=== PATIENT | female | born 1945 | race Caucasian/White ===

== ENCOUNTER 2022-07-01 09:44 | Outpatient (CLI) | payer MEDICARE, SELFPAY ==
--- NOTE | 2022-07-01 09:57 | ECHO_ITS ---
Patient Info Name: Sadie Rodrigues Age: 77 years : 1945 Gender: Female Ht: 63 in Wt: 177 lbs BSA: 1.92 m2 HR: 89 bpm BP: 161 / 92 mmHg Heart Rhythm: Sinus Rhythm Technical Quality: Good Exam Date: 07/01/2022 10:03 AM Exam Location: [facility] Patient Status: Outpatient Admit Date: 07/01/2022 Staff Ordering Physician: Goran Sharma MD Signalling And Communications Engineer: Sommer Goins RDCS Attending Provider: Goran Sharma MD Referring Physician: Zachary CARREON; Exam Type: CA echo doppler color flow Study Info Indications R01.1 - Cardiac murmur, unspecified Complete two-dimensional, color flow and Doppler transthoracic echocardiogram is performed. Summary 1. Complete two-dimensional, color flow and Doppler transthoracic echocardiogram is performed. 2. Left ventricular chamber dimension is normal. 3. Left ventricular systolic function is normal, estimated at 65-70%. 4. There is no increased left ventricular wall thickness. 5. The left ventricular diastolic function is grade I diastolic dysfunction. 6. Global longitudinal strain is normal at -18 %. 7. Right ventricular systolic function is normal. 8. There is mild aortic valve calcification. 9. The mitral valve annulus is mildly calcified. 10. There is mild tricuspid valve regurgitation. Left Ventricle Left ventricular chamber dimension is normal. Left ventricular systolic function is normal, estimated at 65-70%. There is no increased left ventricular wall thickness. The left ventricular diastolic function is grade I diastolic dysfunction. Global longitudinal strain is normal at -18 %. Right Ventricle Right ventricular chamber dimension is normal. Right ventricular systolic function is normal. Left Atria Left atrial chamber dimension is normal. Right Atria Right atrial chamber dimension is normal. Atrial Septum Intact interatrial septum visualized by color flow imaging. Aortic Valve The aortic valve is trileaflet. There is no aortic valve stenosis. There is no aortic valve regurgitation. There is mild aortic valve calcification. Pulmonic Valve The pulmonic valve is not well visualized. Mitral Valve The mitral valve has normal leaflets. There is no mitral valve stenosis. There is trace mitral valve regurgitation. The mitral valve annulus is mildly calcified. Tricuspid Valve There is mild tricuspid valve regurgitation. Pericardium/Pleural There is trivial pericardial effusion. Inferior Vena Cava Normal inferior vena cava with >50% collapse upon inspiration consistent with normal right atrial pressure, 3 mmHg. Aorta The aortic root size at the sinus of Valsalva is normal. Left Ventricular Outflow Tract Name Value Normal LVOT 2D LVOT Diameter 2.0 cm LVOT Doppler LVOT Peak Gradient 4 mmHg LVOT Mean Gradient 2 mmHg LVOT VTI 22 cm LVOT VTI/AV VTI Ratio 0.9 LVOT Stroke Volume 67 ml LVOT CO 5.0 l/min LVOT
== END 2022-07-01 09:45 | disposition home or self-care (01) ==
LOC: ANHCARD 09:45
PROVIDERS: PCP Family Medicine; Visit Provider Family Medicine
DX: R01.1 Cardiac murmur, unspecified (principal)
CPT/HCPCS: 93306

== ENCOUNTER 2023-06-11 08:26 | Outpatient (CLI) | payer MEDICARE, SELFPAY ==
[2023-06-11 09:31] LABS: Alanine Aminotransferase 22 U/L (14-59); Albumin Level 3.6 g/dL (3.4-5.0); Alkaline Phosphatase 113 U/L (46-116); Anion Gap 8 mmol/L (8-16); Aspartate Amino Transferase 20 U/L (15-37); Bilirubin,Total 0.7 mg/dL (0.00-1.00); Blood Urea Nitrogen 14 mg/dL (7-18); Calcium 9.2 mg/dL (8.5-10.1); Carbon Dioxide 30 mmol/L (21-32); Chloride 103 mmol/L (98-108); Cholesterol 287 mg/dL (0-200); Estimated Glomerular Filt Rate > 60; Glucose 111 mg/dL (70-99); HDL Direct 71 mg/dL (40-60); LDL Cholesterol Calculated 199 mg/dL (<130); Osmolality Calculated 293 mOsm/kg (285-295); Potassium 4.1 mmol/L (3.5-5.1); Sodium 141 mmol/L (136-145); Total Protein 6.8 g/dL (6.4-8.2); Triglycerides 86 mg/dL (0-150)
== END 2023-06-11 08:27 | disposition home or self-care (01) ==
LOC: CHSLAB 08:30
PROVIDERS: PCP Family Medicine; Visit Provider Family Medicine
DX: E78.5 Hyperlipidemia, unspecified (principal)
CPT/HCPCS: 36415; 80053; 80061

== ENCOUNTER 2024-03-21 09:50 | Emergency (ER) | payer MEDICARE, OTHER, SELFPAY ==
[2024-03-21] VITALS (29 sets, daily range): BP systolic 126–186; BP diastolic 65–101; PULSE 66–95; RESP 16–20; TEMP 36.9; O2SAT 95–100
--- NOTE | ~2024-03-21 | CT_ITS ---
EXAMINATION: CTA chest DATE: 03/21/2024 11:11 INDICATION: Chest pain radiating throughout the thoracic spine. TECHNIQUE: Computed tomographic angiography (CTA) of the chest was performed without and with 100 mL Omnipaque-350 intravenous contrast. Volume-rendered 3D-reconstructions of the aorta and large arterie s were constructed by the technologist on a separate workstation. Automated exposure control and iter ative reconstruction technique were employed. The dose-length product was 291.54 mGy-cm. COMPARISON: CT dated 03/18/2016 FINDINGS: No pulmonary embolism. Mild discoid atelectasis in the right lower lobe. There is also some subpleura l fibrosis at the medial right lower lobe along side multiple bridging osteophytes consistent with di ffuse idiopathic skeletal hyperostosis (DISH). No pneumonia, pulmonary edema, pleural effusion or pne umothorax. Heart size is normal. No pericardial effusion. Thoracic aorta is normal in caliber with no dissection. No pathologically enlarged thoracic lymphadenopathy. Gallbladder is nonvisualized and li ciarra surgically absent. Moderate thoracic spondylosis. Chronic mild anterior wedging at T11. IMPRESSION: 1. No pulmonary embolism, aortic dissection or other acute cardiopulmonary disease. Reviewed, dictated and finalized at location A. NTEGRATOR OPERATOR IMPRESSION: 1. No pulmonary embolism, aortic dissection or other acute cardiopulmonary dise ase.
--- NOTE | 2024-03-21 09:54 | ECG_ITS ---
Test Date: 2024-03-21 12:19:37 Measurements Intervals [place] Rate: 65 P: 37 IN: 190 QRS: -37 QRSD: 101 T: 25 QT: 433 QTc: 453 Interpretive Statements SINUS RHYTHM LEFT AXIS DEVIATION PATTERN CONSISTENT WITH PULMONARY DISEASE INCOMPLETE RIGHT BUNDLE BRANCH BLOCK VOLTAGE CRITERIA FOR LVH MINIMAL Q WAVES- HIGH LATERAL LEADS BASELINE ARTIFACT- I, II, III, AVR, AVL, AVF, V1-V2 BORDERLINE ECG No previous ECG available for comparison Electronically Signed On 03-21-2024 18:49:19 [employer]OX [employer] by Brad Castro D.O.
--- NOTE | 2024-03-21 10:05 | ED_ITS ---
HPI - Chest Pain General Chief Complaint: Chest Pain Stated Complaint: CHEST PAIN Time Seen by Provider: 03/21/24 09:54 Source: patient and family Mode of arrival: ambulatory Limitations: no limitations History of Present Illness HPI narrative: Patient is a 79-year-old female with left-sided chest pain for the past 3 days. This chest pain is been on and off and more so last night all night. She has left neck pain and left arm pain. She has a history of cervical spine pain and upper back pain. She had an echocardiogram of the heart 2 years ago that was normal. No history of CAD. She does have hypertension. Associated palpitations and flushing of the face. MD complaint: chest pain and chest heaviness Pertinent past history: other ( Hypertension) Onset (ago): day(s) (3) Timing of current episode: constant Prior episodes: No Onset: during rest Pain location: substernal and left chest Pain radiation: left arm, back, neck, jaw/teeth and left scapula Severity: moderate Pain scale (0-10): 5 Quality: tightness, heaviness and sharp Relieving factors: nothing Exacerbating factors: nothing Context: other ( no history of CAD) Associated symptoms: sense of impending doom and palpitations Treatment prior to arrival: none Risk Factors Coronary artery disease risk factors: hypertension Thoracic aortic dissection risk factors: none Related Data On Oral Contraceptives: No Home Medications Medication Instructions Recorded Confirmed cholecalciferol (vitamin D3) 100 100 mcg PO DAILY 06/02/20 03/21/24 mcg (4,000 unit) capsule vitamin K2 45 mcg capsule 45 mcg PO DAILY 06/17/23 03/21/24 Allergies Allergy/AdvReac Type Severity Reaction Status Date / Time atorvastatin Allergy Unknown muscle Verified 03/21/24 10:01 doxycycline Allergy Unknown Skin Verified 03/21/24 10:01 Reaction lisinopril Allergy Unknown cough Verified 03/21/24 10:01 pitavastatin [Livalo] Allergy Unknown cramps Verified 03/21/24 10:01 simvastatin Allergy Unknown cramps Verified 03/21/24 10:01 Sulfa (Sulfonamide Allergy Unknown Pt does Verified 03/21/24 10:01 Antibiotics) not remember reaction Review of Systems Review of Systems: All systems reviewed & are unremarkable except as noted in HPI and below Constitutional: Constitutional: Reports no additional constitutional compla ints Eyes: Eyes: Reports no additional eye complaints ENT: Reports system reviewed and no additional complaints, except as documented Cardiovascular: Cardiovascular: Reports no additional cardiovascular complaints Respiratory: Respiratory: Reports no additional respiratory complaints Gastrointestinal: Gastrointestinal: Reports no additional gastrointestinal complaints Genitourinary: Genitourinary: Reports no additional female genitourinary complaints Musculoskeletal: Musculoskeletal: Reports no additional musculoskeletal complaints Integumentary/Breasts: Skin/Breast: Reports system reviewed and no additional complaints, except as docu Neurologic: Reports system reviewed and no additional complaints, except as documented Psychiatric: Psychiatric: Reports no additional psychiatric complaints Endocrine: Endocrine: Reports no additional endocrine complaints Hematologic/Lymphatic: Hematologic/Lymphatic: Reports no additional hematologic/lymphatic complaints Allergic/Immunologic: Allergic/Immunologic: Reports no additional allergic/immunologic complaints [facility] Past Medical History Medical History Anxiety Cervical polyp Herpes simplex virus (HSV) infection (~2000) History of encephalitis Hypertension Mild depression Mixed hyperlipidemia Prediabetes Rosacea Tubular adenoma of colon Surgical History Surgical History History of dilation and curettage (~1983) History of hysteroscopy (~1997) Hx of cholecystectomy Family History Family History Father , age 71, cardiac arrest Heart disease Myocardial infarction Sibling Family history of cardiovascular disease, Onset Age: 59 Family history of pancreatic cancer Family history of malignant neoplasm of uterus Mother , age 57, pancreatic cancer Pancreatic cancer Social History Social History Smoking status: Never smoker Alcohol intake: never Exam Const: General: healthy appearing Nutritional Appearance: well nourished Orientation/consciousness: patient oriented x3 Other: anxious HENMT: Head: normal to inspection Ears: external ears normal Face/Nose/Sinus: Normal external nose present Eyes: Conjunctivae: conjunctivae normal Pupils: Equal, round and reactive pupils present EOM: EOMs intact bilaterally Neck: Neck: normal visual inspection Chest: Chest palpation & inspection: normal inspection of the chest Resp: Effort & Inspection: normal respiratory effort and not labored Auscultation: clear to auscultation bilaterally and no crackles Cardio: Rate: regular rate Rhythm: regular rhythm Heart sounds: no murmurs GI: Inspection: non-distended Auscultation: normal bowel sounds and bowel sounds present : General: Yes bladder normal to palpation Back/Spine/Pelvis: Back: no CVA tenderness Skin: General skin exam: normal color Rashes: no rashes Wounds: no wounds Neuro: General: patient oriented x3 Cranial nerves: Yes Nystagmus not present Speech: normal speech Extrem: General: normal to inspection Psych: Mental Status: mental status grossly normal Affect: normal affect Attitude: cooperative Course Vital Signs Vital signs: Vital Signs Temperature 36.9 C 03/21/24 09:54 Pulse Rate 95 03/21/24 09:54 Respiratory Rate 20 03/21/24 09:54 Blood Pressure 186/92 H 03/21/24 09:54 Pulse Oximetry 98 03/21/24 09:54 Oxygen Delivery Room Air 03/21/24 09:54 Temperature 36.9 C 03/21/24 09:54 Pulse Rate 71 03/21/24 12:46 Respiratory Rate 18 03/21/24 12:46 Blood Pressure 142/73 H 03/21/24 12:46 Pulse Oximetry 99 03/21/24 12:46 Oxygen Delivery Room Air 03/21/24 12:46 MDM - Chest Pain MDM Narrative Medical decision making narrative: patient is a 79-year-old female with left-sided chest pain that she appreciates in her left face and left arm as well as her upper middle back. We will do workup at this time to include a CTA of the aorta. Lab Data Attestation: I reviewed the patient's lab results. 03/21/24 10:15 03/21/24 10:15 Labs: Lab Results 03/21/24 03/21/24 Range/Units 10:15 12:28 WBC 4.1 L (4.8-10.8) K/mm3 RBC 4.81 (4.20-5.40) M/mm3 Hgb 14.1 H (11.7-13.8) g/dL Hct 41.4 (35.0-42.0) % MCV 86.1 (78.0-102.0) fL MCH 29.3 (27.0-31.0) pg MCHC 34.1 (32-36) g/dL RDW 14.7 H (11.6-14.4) % Plt Count 285 (150-420) K/mm3 MPV 10.2 (9.2-11.8) fl Immature Gran % (Auto) 0.2 H (0.0-0.0) % Neut % (Auto) 51.3 (50.0-70.0) % Lymph % (Auto) 31.0 (18.0-42.0) % Real % (Auto) 10.6 (2.0-11.0) % Eos % (Auto) 5.2 (1.0-6.0) % Baso % (Auto) 1.7 H (0.0-1.0) % Lymph # (Auto) 1.26 (1.10-4.50) K/mm3 Real # (Auto) 0.43 (0.10-0.90) K/mm3 Eos # (Auto) 0.21 (0.02-0.50) K/mm3 Baso # (Auto) 0.07 (0.00-0.10) K/mm3 Abs Immat Gran (auto) 0.01 H (0.00-0.00) K/mm3 Absolute Neuts (auto) 2.08 (1.70-7.20) K/mm3 Absolute Nucleated RBC 0.00 (0.00-0.00) K/mm3 Nucleated RBC % 0.0 (0-0.0) % PT 10.1 (9.50-12.1) Seconds INR 0.9 APTT 25.1 (23.9-30.70) Sec Sodium 140 (136-145) mmol/L Potassium 3.8 (3.5-5.1) mmol/L Chloride 102 (98-108) mmol/L Carbon Dioxide 28 (21-32) mmol/L Anion Gap 10 (4-12) mmol/L BUN 12 (7-18) mg/dL Creatinine 0.85 (0.55-1.02) mg/dL Estim Creat Clear Calc 49 ml/min Estimated GFR > 60 (59 - ) Glucose 111 H (70-99) mg/dL Calculated Osmolality 290 (285-295) mOsm/kg Calcium 9.6 (8.5-10.1) mg/dL Magnesium 1.7 L (1.8-2.4) mg/dL Total Bilirubin 0.6 (0.00-1.00) mg/dL AST 15 (15-37) U/L ALT 31 (14-59) U/L Alkaline Phosphatase 146 H (46-116) U/L Troponin I < 4.0 < 4.0 (0.00-60.4) ng/L NT-Pro-B Natriuret Pep 45 (0-450) pg/mL Total Protein 7.1 (6.4-8.2) g/dL Albumin 3.5 (3.4-5.0) g/dL Lipase 99 H (16-77) U/L TSH 1.46 (0.36-3.74) uIU/mL Urine Color Light yellow (Yellow) Urine Appearance Clear (Clear) Urine pH 6.5 (5.0-8.0) Ur Specific [place] <= 1.005 L (1.010-1.020) Urine Protein Negative (Negative) Urine Glucose (UA) Negative (Negative) Urine Ketones Negative (Negative) Ur Blood (Man) Negative (Negative) Urine Nitrate Negative (Negative) Urine Bilirubin Negative (Negative) Urine Urobilinogen 0.2 (0.2-1.0) mg/dL Leukocyte Esterase Rfl Negative (Negative) TOSHIA/UL Imaging Data Attestation: I personally reviewed and interpreted this imaging study as follows: Radiologist's impression: CTA of the chest was negative for PE and dissection and any other acute process ECG Data EKG #1: Attestation: I personally reviewed and interpreted this ECG as follows: ECG completion date: 03/21/24 ECG completion time: 10:11 EKG Interpretation: normal rate, sinus rhythm, no ectopy, non-specific ST changes, normal QRS, normal QT and left axis EKG #2: Attestation: I personally reviewed and interpreted this ECG as follows: ECG completion date: 03/21/24 ECG completion time: 13:00 EKG Interpretation: normal rate, sinus rhythm, no ectopy, non-specific ST changes, normal QRS, normal QT and left axis Discharge Plan Discharge Clinical Impression: Atypical chest pain Patient Disposition: Home, Self-Care Condition: Stable Instructions: Chest Pain (ED) Additional Instructions: please follow-up with primary doctor in the next week. You will need cervical spine workup as an outpatient planned with her primary doctor. Further cardiac workup can be done with the primary doctor. Prescriptions: No Action cholecalciferol (vitamin D3) 100 mcg (4,000 unit) capsule 100 mcg PO DAILY vitamin K2 45 mcg capsule 45 mcg PO DAILY gabapentin 300 mg capsule 300 mg PO BID Qty: 60 1RF irbesartan-hydrochlorothiazide 150-12.5 mg tablet 1 tablet PO DAILY Qty: 90 3RF Follow-up/Referrals: UNKNOWN,DOCTOR [Primary Care Provider] - Time of Disposition: 13:02
[2024-03-21 10:20] LABS: Basophils Absolute Auto 0.07 K/mm3 (0.00-0.10); Basophils Percent Auto 1.7 % (0.0-1.0); Eosinophils Absolute Auto 0.21 K/mm3 (0.02-0.50); Eosinophils Percent Auto 5.2 % (1.0-6.0); Hematocrit 41.4 % (35.0-42.0); Hemoglobin 14.1 g/dL (11.7-13.8); Immature Granulocyte Absolute 0.01 K/mm3 (0.00-0.00); Immature Granulocyte Percent A 0.2 % (0.0-0.0); Lymphocytes Absolute Auto 1.26 K/mm3 (1.10-4.50); Mean Corpuscular HGB Conc 34.1 g/dL (32-36); Mean Corpuscular Hemoglobin 29.3 pg (27.0-31.0); Mean Corpuscular Volume 86.1 fL (78.0-102.0); Mean Platelet Volume 10.2 fl (9.2-11.8); Monocytes Absolute Auto 0.43 K/mm3 (0.10-0.90); Monocytes Percent Auto 10.6 % (2.0-11.0); Neutrophils Absolute Auto 2.08 K/mm3 (1.70-7.20); Neutrophils Percent Auto 51.3 % (50.0-70.0); Platelet Count Result 285 K/mm3 (150-420); Red Blood Count 4.81 M/mm3 (4.20-5.40); Red Cell Distribution Width 14.7 % (11.6-14.4); White Blood Count 4.1 K/mm3 (4.8-10.8)
[2024-03-21 10:38] LABS: Add Urine Microscopic? NO; Appearance Urine Clear (Clear); Bilirubin Urine Negative (Negative); Blood Urine Negative (Negative); Color Urine Light Yellow (Yellow); Glucose Urine UA Negative (Negative); INR 0.9; Ketones Urine Negative (Negative); Leukocyte Esterase Ur Negative LEU/UL (Negative); Nitrate Urine Negative (Negative); Partial Thromboplastin Time 25.1 Sec (23.9-30.70); Protein Urine Negative (Negative); Prothrombin Time 10.1 Seconds (9.50-12.1); Specific Grav Ur <= 1.005 (1.010-1.020); Urobilinogen Urine 0.2 mg/dL (0.2-1.0); pH Urine 6.5 (5.0-8.0)
[2024-03-21 10:46] LABS: Alanine Aminotransferase 31 U/L (14-59); Albumin Level 3.5 g/dL (3.4-5.0); Alkaline Phosphatase 146 U/L (46-116); Anion Gap 10 mmol/L (4-12); Aspartate Amino Transferase 15 U/L (15-37); Bilirubin,Total 0.6 mg/dL (0.00-1.00); Blood Urea Nitrogen 12 mg/dL (7-18); Calcium 9.6 mg/dL (8.5-10.1); Carbon Dioxide 28 mmol/L (21-32); Chloride 102 mmol/L (98-108); Estimated CRCL calculation 49 ml/min; Estimated Glomerular Filt Rate > 60; Glucose 111 mg/dL (70-99); Lipase 99 U/L (16-77); Magnesium 1.7 mg/dL (1.8-2.4); NT Pro B Type Natriuretic Pept 45 pg/mL (0-450); Osmolality Calculated 290 mOsm/kg (285-295); Potassium 3.8 mmol/L (3.5-5.1); Sodium 140 mmol/L (136-145); Thyroid Stimulating Hormone 1.46 uIU/mL (0.36-3.74); Total Protein 7.1 g/dL (6.4-8.2)
[2024-03-21 10:47] LABS: Troponin I < 4.0 ng/L (0.00-60.4)
--- NOTE | 2024-03-21 12:15 | ECG_ITS ---
Test Date: 2024-03-21 09:54:56 Measurements Intervals [place] Rate: 86 P: 52 ND: 214 QRS: -46 QRSD: 101 T: 51 QT: 382 QTc: 458 Interpretive Statements SINUS RHYTHM WITH FIRST DEGREE AV BLOCK POSSIBLE LEFT ATRIAL ENLARGEMENT INCOMPLETE RIGHT BUNDLE BRANCH BLOCK LEFT ANTERIOR FASCICULAR BLOCK POSSIBLE LEFT VENTRICULAR HYPERTROPHY BASELINE ARTIFACT- II, III, AVR, AVL, AVF, V1-V2 ABNORMAL ECG No previous ECG available for comparison Electronically Signed On 03-22-2024 06:28:00 MATERIAL CHASER by Brad Castro D.O.
[2024-03-21 13:16] LABS: Troponin I < 4.0 ng/L (0.00-60.4)
== END 2024-03-21 13:29 | disposition home or self-care (01) ==
PROVIDERS: Emergency Provider Emergency Medicine
DX: R07.89 Other chest pain (principal); I10 Essential (primary) hypertension
CPT/HCPCS: 36415; 71275; 80053; 81003; 83690; 83735; 83880; 84443; 84484; 85025; 85610; 85730; 93005; 99284; Q9967

== ENCOUNTER 2024-04-02 12:44 | Outpatient (CLI) | payer MEDICARE, OTHER, SELFPAY ==
--- NOTE | ~2024-04-02 | MR_ITS ---
EXAMINATION: MR thoracic spine wo con DATE: 04/02/2024 13:33 INDICATION: Thoracic radiculopathy. Neck pain. TECHNIQUE: Magnetic resonance imaging (MRI) of the thoracic spine was performed without intravenous c ontrast. COMPARISON: Thoracic spine MRI 04/22/2017, chest CT 03/21/2024 FINDINGS: Alignment is normal. There is mild chronic anterior wedging of T6, T7, T11, and T12 vertebr al bodies. There is mildly decreased disc height at many levels. There is moderately decreased disc h eight at T6-T7 and T11-T12. There is multilevel facet joint osteoarthritis, severe at several levels. On the right, there is mild neural foraminal stenosis at T1-T2 and T2-T3. At T5-T6, there is a centr al protrusion with mild central canal stenosis. At C7 T7, there is a central extrusion with mild cent ral canal stenosis. At T8-T9, there is a left central extrusion with mild central canal stenosis. At T9-T10, there is a left central extrusion with mild central canal stenosis. At T10-T11, there is a le ft central extrusion with mild central canal stenosis. At T11-T12, there is a left central extrusion with mild central canal stenosis. The spinal cord signal intensity is normal. IMPRESSION: 1. Moderate thoracic spondylosis, stable from 04/22/17. Reviewed, dictated and finalized at location A. P ART SUPERVISOR
--- NOTE | ~2024-04-02 | MR_ITS ---
EXAMINATION: MR cervical spine wo con DATE: 04/02/2024 13:27 INDICATION: Cervical radiculopathy. TECHNIQUE: Magnetic resonance imaging (MRI) of the cervical spine was performed without intravenous c ontrast. COMPARISON: Cervical spine radiographs 02/10/2019 FINDINGS: Bone alignment is normal. Vertebral body heights are normal. There is mildly decreased disc height at C4-C5, C5-C6, and C6-C7. The spinal cord signal intensity is normal. The following disc le vels are specifically discussed: C2-C3: The disc does not extend beyond the endplate margin. There is no uncovertebral joint osteoarth ritis. There is moderate right and severe left facet joint osteoarthritis. There is no neural foramin al stenosis. There is no central canal stenosis. C3-C4: There is a central protrusion. There is no uncovertebral joint osteoarthritis. There is severe bilateral facet joint osteoarthritis. There is no neural foraminal stenosis. There is mild central c anal stenosis. C4-C5: The disc is bulging. There is moderate right and mild left uncovertebral joint osteoarthritis. There is moderate right and severe left facet joint osteoarthritis. There is mild right neural mica inal stenosis. There is mild central canal stenosis. C5-C6: The disc is bulging. There is mild bilateral uncovertebral joint osteoarthritis. There is mode rate bilateral facet joint osteoarthritis. There is no neural foraminal stenosis. There is mild centr al canal stenosis. C6-C7: The disc is bulging. There is moderate bilateral uncovertebral joint osteoarthritis. There is mild bilateral facet joint osteoarthritis. There is mild bilateral neural foraminal stenosis. There i s mild central canal stenosis. C7-T1: The disc does not extend beyond the endplate margin. There is no uncovertebral joint osteoarth ritis. There is severe bilateral facet joint osteoarthritis. There is mild bilateral neural foraminal stenosis. There is no central canal stenosis. IMPRESSION: 1. Mild cervical spondylosis. Reviewed, dictated and finalized at location A. RAM/MUSIC DIRECTOR
== END 2024-04-02 12:45 | disposition home or self-care (01) ==
LOC: GOSHIMG 12:44
PROVIDERS: PCP Family Medicine; Visit Provider Family Medicine
DX: M47.24 Other spondylosis with radiculopathy, thoracic region (principal); M47.892 Other spondylosis, cervical region
CPT/HCPCS: 72141; 72146

== ENCOUNTER 2024-08-14 10:55 | Emergency (ER) | payer MEDICARE, OTHER, SELFPAY ==
--- NOTE | ~2024-08-14 | XR_ITS ---
EXAMINATION: XR knee LT min 4V DATE: 08/14/2024 12:03 INDICATION: Patellar pain post twisting injury one day prior TECHNIQUE: Anteroposterior, sunrise, oblique and crosstable lateral views of the affected knee were o btained COMPARISON: None. FINDINGS: Alignment is normal. No fracture. Mild medial and patellofemoral osteoarthritis. Moderate-sized enth esophyte at the patellar insertion of the distal quadriceps tendon. Moderate-sized left knee joint ef fusion. Soft tissues are otherwise unremarkable. IMPRESSION: 1. Mild medial and patellofemoral osteoarthritis. No acute osseous abnormality. 2. Moderate-sized left knee joint effusion. Reviewed, dictated and finalized at location A.
[2024-08-14 11:08] VITALS: BP 178/80; PULSE 105; RESP 16; TEMP 36.3; O2SAT 100
--- NOTE | 2024-08-14 11:41 | ED_ITS ---
HPI - Extremity Problem General Chief complaint: Extremity Problem,Nontraumatic Stated complaint: L KNEE PAIN Time Seen by Provider: 08/14/24 11:31 Source: patient, RN notes reviewed and old records reviewed Mode of arrival: ambulatory Limitations: no limitations History of Present Illness HPI Narrative: Patient presents today complaining of left knee pain. Patient initially injured her knee on 06/26/2024 after walking 4 miles at home. She followed up with her PCP on 07/08/24 when physical therapy was ordered for the following 2 weeks. Patient states she was feeling somewhat better after this period of time, and follow-up note confirms this. Patient states however, her pain did not fully resolve. Yesterday she states that her knee gave out and twisted causing severe pain, and ache also gave out again this morning. She currently rates her pain 4/10 at rest, which increases significantly with weight-bearing. She applies CBD lotion, and takes motrin and CBD orally for pain control with some mild r elief. Denies numbness or tingling in the leg or foot. States current pain is significantly worse than when her pain 1st appeared at the beginning of June. Related Data Home Medications ?Medication ?Instructions ?Recorded ?Confirmed ?Last Taken ?Type cholecalciferol (vitamin D3) 100 100 mcg PO DAILY 06/02/20 08/14/24 Unknown Hi story mcg (4,000 unit) capsule vitamin K2 45 mcg capsule 45 mcg PO DAILY 06/17/23 08/14/24 Unknown History Allergies Allergy/AdvReac Type Severity Reaction Status Date / Time atorvastatin Allergy Unknown muscle Verified 08/14/24 11:07 doxycycline Allergy Unknown Skin Verified 08/14/24 11:07 Reaction lisinopril Allergy Unknown cough Verified 08/14/24 11:07 pitavastatin (Livalo) Allergy Unknown cramps Verified 08/14/24 11:07 simvastatin Allergy Unknown cramps Verified 08/14/24 11:07 Sulfa (Sulfonamide Allergy Unknown Pt does Verified 08/14/24 11:07 Antibiotics) not remember reaction Review of Systems Review of Systems: CONSTITUTIONAL: Denies body aches, fever, chills, or sweats. EYES: Denies visual changes, redness, or discharge. ENT: Denies rhinorrhea, congestion, sore throat, or otalgia. CARDIOVASCULAR: Denies chest pain, palpitations, or edema. RESPIRATORY: Denies cough or dyspnea. GASTROINTESTINAL: Denies abdominal pain, nausea, vomiting, or diarrhea. GENITOURINARY: Denies dysuria or hematuria. SKIN: Denies rash, itching, or wounds. MUSCULOSKELETAL:+ left knee pain NEUROLOGIC: Denies headache, numbness, tingling, or weakness. PSYCH: Denies depression or anxiety. [facility] Past Medical History Medical History Tubular adenoma of colon Anxiety Hypertension Cervical polyp Herpes simplex virus (HSV) infection (~2000) Prediabetes History of encephalitis Mild depression Rosacea Mixed hyperlipidemia Surgical History Surgical History Hx of cholecystectomy History of dilation and curettage (~1983) History of hysteroscopy (~1997) Family History Family History Father , age 71, cardiac arrest Heart disease Myocardial infarction Sibling Family history of cardiovascular disease, Onset Age: 59 Family history of pancreatic cancer Family history of malignant neoplasm of uterus Mother , age 57, pancreatic cancer Pancreatic cancer Social History Social History Smoking status: Never smoker Alcohol intake: never Comments At time of signature, I have reviewed and agree with nursing past medical, surgical, social and family history unless otherwise noted. Please see nursing chart for further information. There is no relevant family history pertinent to the presenting complaint Exam Narrative: GENERAL: Well-appearing, well-nourished, and in no acute distress. HEAD: Normocephalic, atraumatic. EYES: EOMI. No redness or drainage. Conjunctivae normal. ENT: Mucous membranes pink and moist. NECK: Normal AROM. CHEST: No respiratory distress. EXTREMITIES: Left knee: Patient is very tender to even light palpation to the patella and patellar tendon area as well as some milder tenderness to the lateral joint line. There is some mild edema. No tenderness posteriorly or to the medial joint line. Distal sensation intact. Capillary refill normal. Patient has pain with passive extension, internal, and external rotation. No pain with passive or active flexion. SKIN: Warm, dry, no rash. Capillary refill normal. Normal skin turgor. NEURO: No focal deficits. Alert and oriented x3. Gait steady. PSYCH: Normal affect. No signs of depression or anxiety. Course Course Level of Care: Express Care Visit Vital Signs Vital signs: Vital Signs Temperature 97.4 F L 08/14/24 11:08 Pulse Rate 105 H 08/14/24 11:08 Respiratory Rate 16 08/14/24 11:08 Blood Pressure 178/80 H 08/14/24 11:08 Pulse Oximetry 100 08/14/24 11:08 Temperature 97.4 F L 08/14/24 11:08 Pulse Rate 105 H 08/14/24 11:08 Respiratory Rate 16 08/14/24 11:08 Blood Pressure 178/80 H 08/14/24 11:08 Pulse Oximetry 100 08/14/24 11:08 Reviewed MDM - Extremity (Nontraumatic) MDM Narrative Medical decision making narrative: While a bony injury is not likely given her mechanism, patient would like an x- ray. X-ray shows moderate joint effusion and mild osteoarthritis without fracture. Discussed x-ray results with patient. Recommend PCP or ortho follow-up in 7-10 days if symptoms are not improving. Patient agrees with plan. Declines Jed wrap. Differential Diagnosis Differential diagnosis: Likely other (Knee strain, tendinitis, meniscus injury, ligamentous injury) Critical Care Time Critical Care Time Critical Care Time: No Discharge Plan Discharge Clinical Impression: Effusion, left knee Injury of knee, left Qualifiers: Encounter type: initial encounter Qualified Code(s): S89.92XA - Unspecified injury of left lower leg, initial encounter Patient Disposition: Home Condition: Stable Instructions: Swollen Knee Joint (ED) Additional Instructions: Your x-ray shows a moderate joint effusion and mild arthritis. Please rest and elevate your knee. Ice and take Tylenol. Follow-up with your PCP or orthopedic physician in 7-10 days if symptoms are not improving. Your blood pressure was elevated above 120/80 today at Urgent Care. This puts you above the threshold for follow up. Please schedule a followup visit with your personal physician as soon as possible, for further evaluation and treatment. Even blood pressure exceeding 120/80 may indicate pre-hypertension. Patient Language: Greek Prescriptions: No Action cholecalciferol (vitamin D3) 100 mcg (4,000 unit) capsule 100 mcg PO DAILY vitamin K2 45 mcg capsule 45 mcg PO DAILY irbesartan-hydrochlorothiazide 150-12.5 mg tablet 1 tablet PO DAILY Qty: 90 3RF Follow-up/Referrals: Goran Sharma MD [Primary Care Provider] - Ankush Walsh MD [Physician] - Time of Disposition: 13:01
== END 2024-08-14 13:10 | disposition home or self-care (01) ==
PROVIDERS: Emergency Provider Nurse Practitioner; PCP Family Medicine
DX: M25.462 Effusion, left knee (principal); S89.92XA Unspecified injury of left lower leg, initial encounter; X50.0XXA Overexertion from strenuous movement or load, initial encounter; I10 Essential (primary) hypertension; E78.2 Mixed hyperlipidemia; R73.03 Prediabetes; L71.9 Rosacea, unspecified
CPT/HCPCS: 73564; 99213; G0463

== ENCOUNTER 2024-08-24 12:41 | Outpatient (CLI) | payer MEDICARE, OTHER, SELFPAY ==
--- NOTE | ~2024-08-24 | MR_ITS ---
MRI of the left knee Clinical history: Pain Technique: Coronal proton density and proton density-weighted images, sagittal proton-density and T2 fat-sat images, and axial proton-density fat-saturated images were acquired. Findings: Anterior and posterior cruciate ligaments are intact. Medial collateral ligament and the la teral collateral ligament complex are intact. Popliteus tendon is intact. There is complex tearing extensively involving the posterior horn and body of medial meniscus, with p robable large radial component of the tear present. Lateral meniscus is intact. There is subchondral insufficiency fracture of the medial femoral condyle with extensive amorphous ma rrow edema throughout the medial femoral condyle and at the roof of the intercondylar notch. 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 There is extensive high-grade chondromalacia over the medial aspect of the femoral trochlea. There is high-grade chondromalacia at the medial tib ial plateau towards the medial joint line. Extensor mechanism is intact. Small to moderate joint effusion present. Minimal Fletcher's cyst. Impression: Subchondral insufficiency fracture of the medial femoral condyle with extensive marrow edema at the m edial femoral condyle extending to the roof of the intercondylar notch. Extensive complex tearing of the posterior horn and body of the medial meniscus, as detailed above. 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 Small to moderate joint effusion. Reviewed, dictated and finalized at [facility]. Impression: Subchondral insufficiency fracture of the medial femoral condyle with extensive marrow edema at the medial femoral condyle extending to the roof of the interc ondylar notch. Extensive complex tearing of the posterior horn and body of the medial meniscus , as detailed above. 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 Small to moderate joint effusion.
== END 2024-08-24 12:42 | disposition home or self-care (01) ==
LOC: GOSHIMG 12:41
PROVIDERS: PCP Family Medicine; Visit Provider Family Medicine
DX: M25.462 Effusion, left knee (principal); S83.232A Complex tear of medial meniscus, current injury, left knee, initial encounter; X58.XXXA Exposure to other specified factors, initial encounter
CPT/HCPCS: 73721

== ENCOUNTER 2024-12-22 13:52 | Outpatient (CLI) | payer MEDICARE, OTHER, SELFPAY ==
--- NOTE | ~2024-12-22 | DEXA_ITS ---
Bone Density Report Name: ARUN PIZANO V Age: 79 Sex: Female Ethnicity: White Date of : 1945 Indication: postmenopausal; screening for osteoporosis; prior fracture; hysterectomy; Referring Provider: UNKNOWN, UNKNOWN Study: Bone densitometry was performed. Exam Date: December 22, 2024 Accession number: [id number] Bone Density: Region BMD T-score Z-score Classification AP Spine(L1-L4) 1.139 0.8 3.4 Normal Femoral Neck (Left) 0.620 -2.1 0.1 Osteopenia Total Hip (Left) 0.864 -0.6 1.3 Normal Femoral Neck (Right) 0.647 -1.8 0.4 Osteopenia Total Hip (Right) 0.876 -0.5 1.4 Normal Femoral Neck Mean 0.634 -1.9 0.3 Osteopenia Total Hip Mean 0.870 -0.6 1.3 Normal World Health Organization criteria for BMD impression classify patients as: Normal (T-score at or above -1.0), Osteopenia (T-score between -1.0 and -2.5), or Osteoporosis (T-score at or below -2.5). 10-year Fracture Risk: FRAX not reported because: Prior hip or vertebral fracture Treated for osteoporosis Clinical Information Provided by Patient: Have had a previous hip or vertebral fracture Has had a low trauma fracture Is being treated for osteoporosis Has used the following medications: Vitamin D Has the following medical conditions: Hysterectomy Patient maximum height was 63 Menopause Age: 52 No regular weight bearing exercise Does not regularly consume dairy products Drinks caffeinated beverages Onset of menses at age 15 Number of children 3 Impression: The patient has low bone mass, based on the Left Femoral Neck T-score. The patient has risk factors, including: previous fracture. Discussion: It is important to ask patients whether they are taking their medications and to encourage continued and appropriate compliance with their osteoporosis therapies to reduce fracture risk. It is also important to review their risk factors and encourage appropriate calcium and vitamin D intakes, exercise, fall prevention and other lifestyle measures. Follow-Up: Consider a repeat BMD and Vertebral Fracture Assessment (VFA) exam in 2 years or sooner if medically necessary, to reassess this patient's status. Reported by: [email or web address] on 12/22/2024 2:17:00 PM. Reviewed, dictated and finalized at location A.
--- OUTSIDE RECORDS SUMMARY | 2024-12-22 14:00 | XMS_ITS | Clinical Summary ---
Author Organization [facility] Address [address], [facility] [address] [place] [address] Phone Care Team Providers Care Layout Inspector Name Role Phone Calvin Nelson MD Primary Care Provider [phone] Allergies Active Allergy Reactions Criticality Noted Date Comments Sulfa Antibiotics Unknown A CHILD Medications Coenzyme Q10 10 MG Capsule Take 1 Cap by mouth daily. Active Cholecalciferol (VITAMIN D) 2000 UNITS Capsule 1 Cap daily. Active Krill Oil [place]-3 300 MG Capsule Active triamterene-hyd rochlorothiazid e (MAXZIDE) 37.5-25 MG Tablet daily. Active OMEPRAZOLE PO 40 mg every morning. Active Turmeric 500 MG Tablet Take 1,000 mg by mouth daily. Active Multiple Vitamin (MULTI-VITAMIN) Tablet Take 1 Tab by mouth daily. Active Probiotic Product (PROBIOTIC ADVANCED PO) Take 1 Tab by mouth daily. Active irbesartan-hydr oCHLOROthiazide (AVALIDE) 150-12.5 MG Tablet Take 1 Tab by mouth daily. Active metroNIDAZOLE (METROCREAM) 0.75 % Cream Apply 2 times daily. Use a thin layer to affected areas after washing. Active pantoprazole (PROTONIX) 40 MG Tablet Delayed Response Take 1 Tab by mouth daily. 30 Tab 0 08/09/2016 Active Active Problems Problem Noted Date Diagnosed Date Colon polyps Dyspepsia GERD (gastroesophageal reflux disease) Family History Medical History Relation Name Comments Heart Attack Father Cancer Maternal Aunt 1 Lung Cancer Maternal Aunt 2 Breast Diabetes Maternal Grandfather Other-comment Maternal Grandfather PE Cancer Maternal Uncle Prostate Cancer Mother Pancreatic Cancer Other 1 niece-colon Cancer Other 2 Cousin - Colon, stomach, prostate Cancer Other 3 Cousin - Breast Cancer Sister 1 Uterine, colon, pancreatic Cancer Sister 2 Pancreatic Cancer Sister 3 Lung Heart Attack Sister 4 Cancer Sister 5 Lymphoma, uteri ne, colon, Hodgkins lymphoma Hypertension Sister 6 Hypertension Sister 7 Relation Name Status Comments Father Maternal Aunt 1 Maternal Aunt 2 Maternal Grandfather Maternal Uncle Mother Other 1 Other 2 Other 3 Sister 1 Sister 2 Sister 3 Sister 4 Sister 5 Sister 6 Sister 7 Social History Tobacco Use Types Packs/Day Years Used Date Smoking Tobacco: Never Alcohol Use Standard Drinks/Week Comments No 0 (1 standard drink = 0.6 oz pur e alcohol) Comments Unknown Sex and Gender Information Value Date Recorded Sex Assigned at Not on file Legal Sex Female 11:45 PM CDT Gender Identity Not on file Sexual Orientation Not on file Occupation Industry Job Start Date Job End Date summer Not on file Not on file Not on file Last Filed Vital Signs Vital Sign Reading Time Taken Comments Blood Pressure 122/64 08/09/2016 10:26 AM CDT Pulse 82 08/09/2016 8:07 AM CDT Temperature 36 C (96.8 F) 08/09/2016 10:26 AM CDT Respiratory Rate 17 08/09/2016 10:26 AM CDT Oxygen Saturation 100% 08/09/2016 10:26 AM CDT Inhaled Oxygen Concentration - - Weight - - Height - - Body Mass Index - - Plan of Treatment Health Maintenance Due Date Last Done Comments Hepatitis C Virus (HCV) Screening 1945 TdaP Immunization 1945 Pneumococcal Immunization (5 0+ years) (1 of 1 - PCV) 1997 Zoster Immunization (1 of 2) 1997 Respiratory Syncytial Virus (RSV) Immunization (Adult) (1 - 1-dose 75+ series) 2022 SARS-COV-2 Immunization (1 - 2023-25 season) 2023 Influenza Immunization (#1) 2024 Colonoscopy Discontinued 08/09/2016 Colorectal Cancer Screening Discontinued Cologuard Discontinued Hepatitis B Immunization Aged Out No longer eligible based on patient's age to complete this topic Human Papillomavirus (HPV) Immunization Aged Out No longer eligible b ased on patient's age to complete this topic Immunochemical Fecal Occult Blood Discontinued Meningococcal Immunization (ACWY) Aged Out No longer eligible based on patient's age to complete this topic Rotavirus Immunization Aged Out No lo nger eligible based on patient's age to complete this topic Insurance MEDICARE [facility] Care Teams Layout Inspector Relationship Specialty Start Date End Date Calvin Nelson MD [address] [place] [address] PCP - General Family Medicine 08/08/16
--- OUTSIDE RECORDS SUMMARY | 2024-12-22 14:00 | XMS_ITS | Clinical Summary ---
Author Organization [facility] Address [address] [place] [address] Care Team Providers Care Hydraulic Auto Jack Mechanic Name Role Phone Goran Sharma MD Primary Care Provider [phone] Gurjit Hunt MD Unavailable [phone] Allergies Active Allergy Reactions Criticality Noted Date Comments Sulfa (Sulfonamide Antibiotics) Unknown Low Childhood allergy Tetracycline Rash Medium 04/02/2019 Medications irbesartan-hydr ochlorothiazide (AVALIDE) 150-12.5 mg per tablet take 1 tablet by oral route every day 30 2 6 Active cholecalciferol (VITAMIN D3) 2,000 unit capsule take 1 by Oral route once 0 0 6 Active fluticasone (FLONASE) 50 mcg/actuation nasal spray 1 7 Active metroNIDAZOLE (METROCREAM) 0.75 % creamIndication s:Acne Rosacea Apply topically 2 (two) times a day. Active estrogens, conjugated, (PREMARIN) vaginal cream Insert into the vagina daily Active ketoconazole (NIZORAL) 2 % shampoo APPLY 1 2 TIMES PER WEEK X 5 MINUTES TO SCALP AND RINSE FOR SEBORRHEIC DERMATITIS 0 Active loratadine (CLARITIN) 10 mg tablet Take 10 mg by mouth daily Active Active Problems Problem Noted Date Diagnosed Date Family history of Nielsen syndrome 10/21/2019 Overview (10/21/2019): Added automatically from request for surgery [id number] History of colon polyps 10/21/2019 Overview (10/21/2019): Added automatically from request for surgery [id number] Dyslipidemia 04/02/2019 Anxiety 04/01/2017 Palpitations 04/11/2016 Overview (08/01/2016): Palpitations Assessment & Plan (04/01/2017 6:58 PM [employer] SALES ENGINEER): Patient describes A regular heart rate, pulse 110, when she has her palpitations. Probably sinus tachycardia perhaps related to anxiety. Essential hypertension 04/11/2016 Overview (08/01/2016): Essential hypertension Assessment & Plan (04/01/2017 6:58 PM E[employer] SALES ENGINEER): Hypertension is not completely controlled today. Chest pain at rest 04/11/2016 Overview (08/01/2016): Chest pain at rest Assessment & Plan (04/01/2017 6:58 PM E[employer] SALES ENGINEER): Patient experiencing intense left scapular, shoulder and arm pain particularly at night when she is trying to sleep, with some associated substernal chest discomfort. EKG today shows normal sinus rhythm, IRBBB, LAFB, no ischemic changes Patient does have tenderness to palpation suggesting this is musculoskeletal. History of evaluations for chest pain which turned out to be noncardiac. Does have risk factors for CAD however. Suspect this is musculoskeletal pain, but will evaluate further. 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 Encounters Date Type Department Care Team Description 12/15/2024 2:50 PM CDT - 12/15/2024 11:59 PM CDT Hospital Encounter [facility] [address] [place] [address] Discharge Disposition: Discharge to home or self care 12/15/2024 10:15 AM CDT Office Visit [facility] Medicine Neurosurgery [facility] [facility] [address] [place] [address] Daryl Phillip PA Age-related osteoporosis with current pathological fracture of vertebra, initial encounter (HCC) (Primary Dx); Compression fracture of L3 lumbar vertebra, closed, initial encounter (HCC); Osteoarthritis of left knee, unspecified osteoarthritis type 12/15/2024 9:29 AM CDT - 12/15/2024 11:59 PM CDT Hospital Encounter [facility] Radiology [address] [facility] [address] [place] [id number] Low back pain, non-specific Discharge Disposition: Discharge to home or self care 12/10/2024 Orders Only [facility] Medicine Neurosurgery [address] [facility] [address] [place] [address] Daryl Phillip PA Low back pain, non-specific (Primary Dx) 12/02/[facility] [address] [place] [address] Malissa Holliday from Last 3 Months Surgical History Surgery Date Site/Laterality Comments TOTAL ABDOMINAL HYSTERECTOMY CHOLECYSTECTOMY Medical History Medical History Date Comments Hypercholesterolemia Hypertension Arthritis Family History Medical History Relation Name Comments Hypertension Brother Heart attack Father Myocardial infa rction; Cause of : Myocardial infarction Heart disease Father Family history of cardiac disorder - (Added by TW Conv) Pancreatic cancer Mother Cancer, pa ncreas; Cause of : Cancer, pancreas Pancreatic cancer Sister 1 Lung cancer Sister 2 Heart attack Sister 3 Relation Name Status Comments Brother Alive Father (Age 72) Mother (Age 56) Sister 1 (Age 52) Sister 2 (Age 62) Sister 3 (Age 74) Social History Tobacco Use Types Packs/Day Years Used Date Smoking Tobacco: Never Smokeless Tobacco: Never Tobacco Cessation:Counseling Given: No Alcohol Use Standard Drinks/Week Comments No 0 (1 standard drink = 0.6 oz pur e alcohol) Comments No Sex and Gender Information Value Date Recorded Sex Assigned at Not on file Legal Sex Female 1:05 PM [employer] SALES ENGINEER Gender Identity Not on file Sexual Orientation Not on file Obstetrics History Last Filed Vital Signs Vital Sign Reading Time Taken Comments Blood Pressure 136/67 12/15/2019 2:30 PM CDT Pulse 76 12/15/2019 2:25 PM CDT Temperature 37.2 C (98.9 F) 12/15/2019 2:10 PM CDT Respiratory Rate 15 12/15/2019 2:25 PM CDT Oxygen Saturation 98% 12/15/2019 2:25 PM CDT Inhaled Oxygen Concentration - - Weight 78.5 kg (173 lb) 12/15/2024 10:04 AM CDT Height 160 cm (5' 3) 12/15/2024 10:04 AM CDT Body Mass Index 30.65 12/15/2024 10:04 AM CDT Plan of Treatment Health Maintenance Due Date Last Done Comments Depression Screening 1945 Hepatitis C Screening 1945 Osteoporosis Screening-Bone Density Scan 1945 Zoster Vaccine (2 of 3) 05/31/2009 04/05/2009 Well Visit 65+ 2012 DTaP/Tdap/Td Vaccine (2 - Td or Tdap) 03/02/2017 03/02/2007, 04/28/1992 Fall Risk Assessment 12/14/2020 12/15/2019 Influenza Vaccine (#1) 2024 , 01/14/2019, 12/24/2017, Additional history exists Pneumococcal vaccine 65+ Completed 10/09/2016, 08/27 Hepatitis B Screening Completed 04/14/2017 Colon Cancer Screening-CT Colonography Discontinued 12/15/2019 Colon Cancer Screening-Colonoscopy Discontinued 12/15/2019 Colon Cancer Screening-DNA Stool Discontinued 12/15/19 Colon Cancer Screening-FIT Discontinued 12/15/2019 Colon Cancer Screening-FOBT Discontinued 12/15/2019 Colon Cancer Screening-Sigmoidoscopy Discontinued 12/15/2019 Colorectal Cancer Screening Discontinued Breast Cancer Screening-Mammogram Discontinued 10/07/2023, 07/11/2022, 03/02/2021, Additional history exists Procedures Procedure Name Priority Date/Time Associated Diagnosis Comments NEURO CT OUTSIDE REFERENCE Routine 12/15/2024 2:50 PM CDT XR SCOLIOSIS 6 OR MORE VIEWS Schedule Routine, Read Routine (OP Routine) 12/15/2024 9:52 AM CDT Low back pain, non-specific SCREENING MAMMOGRAM BILATERAL W ERIK Schedule Routine, Read Routine (OP Routine) 10/07/2023 11:30 AM CDT Screening mammogram, encounter for COLONOSCOPY 12/15/2019 1:41 PM CDT from Last 3 Months or Most Recently Relevant to Health Maintenance Results * Neuro CT Outside Reference (12/15/2024 2:50 PM CDT) Impressions [facility] - 12/15/2024 2:50 PM CDT These images are for Reference purposes only and have not been reviewed by [facility]iology. There will be no report generated by a [facility] Radiologist. Narrative [facility] - 12/15/2024 2:50 PM CDT EXAMINATION: Images For Reference Purposes Only Daryl CARLOS IMG CT PROCEDURES Fin al Result [facility] * XR Scoliosis 6 or More Views (12/15/2024 9:52 AM CDT) Anatomical Region Laterality Modality Spine N/A Computed Radiogr aphy 12/15/2024 11:4 5 AM CDT Impressions 12/15/2024 11:55 AM CDT 1. Mild superior endplate height loss of the L3 vertebral body, which may be acute. 2. Multilevel degenerative disc disease of the lumbar spine, greatest and moderate at L5-S1. Dictated by: Goran Padilla MD The radiology attending physician has personally reviewed this study, and had reviewed and/or edited this written report and agrees with it. Electronically signed by: Darryl Tavarez M.D. Narrative 12/15/2024 11:55 AM CDT EXAMINATION: XR SCOLIOSIS 6 OR MORE VIEWS HISTORY: Low back pain FINDINGS: No examinations are available for comparison. Mild dextrocurvature of the lower lumbar spine with apex centered at L2. Neutral balance. No listhesis with flexion or extension maneuvers. Mild superior endplate height loss of the L3 vertebral body, which may be acute. Multilevel degenerative disc disease of the lumbar spine, greatest and moderate at L5-S1, with lower lumbar facet arthropathy. Atherosclerotic calcifications. Procedure Note Darryl Tavarez MD - 12/15/2024 EXAMINATION: XR SCOLIOSIS 6 OR MORE VIEWS HISTORY: Low back pain FINDINGS: No examinations are available for comparison. Mild dextrocurvature of the lower lumbar spine with apex centered at L2. Neutral balance. No listhesis with flexion or extension maneuvers. Mild superior endplate height loss of the L3 vertebral body, which may be acute. Multilevel degenerative disc disease of the lumbar spine, greatest and moderate at L5-S1, with lower lumbar facet arthropathy. Atherosclerotic calcifications. IMPRESSION: 1. Mild superior endplate height loss of the L3 vertebral body, which may be acute. 2. Multilevel degenerative disc disease of the lumbar spine, greatest and moderate at L5-S1. Dictated by: Goran Padilla MD The radiology attending physician has personally reviewed this study, and had reviewed and/or edited this written report and agrees with it. Electronically signed by: Darryl Tavarez M.D. Daryl CARLOS IMG XR PROCEDURES Fin al Result * Screening Mammogram Bilateral W Erik (10/07/2023 11:30 AM CDT) Anatomical Region Laterality Modality Breast Bilateral Mammography Narrative 10/09/2023 2:15 PM CDT Mammogram Technique: Bilateral Digital Breast Tomosynthesis, Bilateral C-view 2D Screening mammogram. Views obtained: bilateral craniocaudal and bilateral mediolateral oblique. Computer Aided Detection was performed. Mammogram Findings: The present examination has been compared to prior imaging studies performed at [facility] on 07/12/2019, 03/02/2021 and 07/11/2022. There are scattered areas of fibroglandular density. There is no suspicious abnormality in either breast. Impression: There is no mammographic evidence of malignancy. Annual screening mammography is recommended. OVERALL FINAL ASSESSMENT: BI-RADS CATEGORY 1: Negative. Procedure Note Mary Kay De Anda MD - 10/09/2023 Mammogram Technique: Bilateral Digital Breast Tomosynthesis, Bilateral C-view 2D Screening mammogram. Views obtained: bilateral craniocaudal and bilateral mediolateral oblique. Computer Aided Detection was performed. Mammogram Findings: The present examination has been compared to prior imaging studies performed at [facility] on 07/12/2019, 03/02/2021 and 07/11/2022. There are scattered areas of fibroglandular density. There is no suspicious abnormality in either breast. Impression: There is no mammographic evidence of malignancy. Annual screening mammography is recommended. OVERALL FINAL ASSESSMENT: BI-RADS CATEGORY 1: Negative. us Self Screening Mammogram IMG MAMMO PROCEDURES Fi nal Result * COLONOSCOPY (12/15/2019 1:41 PM CDT) Anatomical Region Laterality Modality Other Narrative Procedure Note Farhad Anthony MD - 12/15/2019 1:41 PM CDT ENDOSCOPY LAB Patient Name: Sadie Rodrigues Procedure Date: 12/15/2019 1:41 PM Date of : 1945 Admit Type: Outpatient Age: 74 Gender: Female Attending MD: Farhad Anthony M.D. Room: [facility] ENDOSCOPY ROOM 02 Note Status: Finalized Procedure: Colonoscopy Indications: High risk colon cancer surveillance: Personal historyof colonic polyps, Last colonoscopy: August 2016, Familyhistory of colon cancer in multiple first-degree relatives,Family history of HNPCC/Nielsen, but she tested negative per her report Providers: Farhad Anthony M.D. Referring MD: Goran Sharma MD Medicines: Monitored Anesthesia Care Complications: No immediate complications. Estimated Blood Loss: Estimated blood loss was minimal. Procedure: Pre-Anesthesia Assessment: - Immediately prior to administration of medications,the patient was re-assessed for adequacy to receivesedatives. - Sedation was administered by an anesthesiaprofessional. The sedation level attained was moderate. - The heart rate, respiratory rate, oxygen saturations, blood pressure, adequacy of pulmonary ventilation, and response to care were monitored throughout theprocedure. - The physical status of the patient was re-assessedafter the procedure. The benefits, risks and alternatives of the procedureand sedation were discussed and informed consent wasobtained. All questions were answered. Please refer to the signed informed consent document in the medical record. Thescope was passed under direct vision. The [id number] introduced through the anus and advanced to theterminal ileum, with identification of the appendiceal orificeand IC valve. The colonoscopy was somewhat difficult due to significant looping and a tortuous colon. Successful completion of the procedure was aided by straighteningand shortening the scope to obtain bowel loop reduction and using scope torsion. The patient tolerated theprocedure well. The quality of the bowel preparation was good.The quality of the bowel preparation was evaluated usingthe BBPS (Milburn Bowel Preparation Scale) with scores of: Right Colon = 3 (entire mucosa seen well with noresidual staining, small fragments of stool or opaque liquid), Transverse Colon = 3 (entire mucosa seen well with no residual staining, small fragments of stool or opaque liquid) and Left Colon = 3 (entire mucosa seen wellwith no residual staining, small fragments of stool oropaque liquid). The total BBPS score equals 9. Findings: Skin tags were found on perianal exam. The digital rectal exam was normal. Pertinent negatives include no palpable rectal lesions. The terminal ileum appeared normal. A 1 mm polyp was found in the cecum. The polyp was sessile. The polyp was removed with a jumbo cold forceps. Resection and retrieval were complete. A 2 mm polyp was found in the transverse colon. The polyp wassessile. The polyp was removed with a jumbo cold forceps. Resection andretrieval were complete. A 2 mm polyp was found in the rectum. The polyp was sessile. Thepolyp was removed with a jumbo cold forceps. Resection and retrieval were complete. A few small-mouthed diverticula were found in the sigmoid colon. Non-bleeding internal hemorrhoids were found during retroflexion. The hemorrhoids were small. The exam was otherwise without abnormality on direct and retroflexion views. Impression: - Perianal skin tags found on perianal exam. - The examined portion of the ileum was normal. - One 1 mm polyp in the cecum, removed with a jumbocold forceps. Resected and retrieved. - One 2 mm polyp in the transverse colon, removed witha jumbo cold forceps. Resected and retrieved. - One 2 mm polyp in the rectum, removed with a jumbocold forceps. Resected and retrieved. - Diverticulosis in the sigmoid colon. - Non-bleeding internal hemorrhoids. - The examination was otherwise normal on direct and retroflexion views. Recommendation: - Discharge patient to home. - Advance diet as tolerated and high fiber diet indefinitely. - Continue present medications. - Use fiber, for example Citrucel, Fibercon, Konsyl or Metamucil. - Await pathology results. - Repeat colonoscopy date to be determined afterpending pathology results are reviewed for surveillance basedon pathology results. - For polyp and cancer prevention: Consider dailyaspirin if OK with primary care provider; Calcium, folate, and vitamin D; healthy diet low in processed and red meats, exercise regularly, maintain healthy weight. [facility] Cancer website for more prevention tips. - Contact Information: During normal business hours (8AM-4PM) - Please call the Nurse Coordinator: [phone]. call center manager physician after hours, weekends and holidays: [phone] and asked for the [facility] physicianon call. - A polyp or polyps were removed during yourcolonoscopy today. After the pathology result of the polyp(s) is reviewed, the doctor who performed your colonoscopywill recommend follow-up colonoscopy to you based on current guidelines by gastroenterology societies: - If only small hyperplastic polyps from the rectum or sigmoid were removed, repeat the colonoscopy in 10years. - If 1 or 2 polyps less than 1 cm in size areadenomas, repeat the colonoscopy in 5 years. - If 3 or more polyps are adenomas, repeat thecolonoscopy in 3 years. - If there are 10 or more adenomas, repeat thecolonoscopy in 1 year. - If any polyp is 10 mm or greater in size, has villous histology or high grade dysplasia, repeat thecolonoscopy in 3 years. - If a polyp greater than 2 cm was removed with a piecemeal technique, repeat the colonoscopy in 6 monthsto be certain that there is no residual polyp. - Sessile serrated polyps are treated like adenomas for surveillance purposes. Electronically signed by Farhad Anthony MD Farhad Anthony M.D. 12/15/2019 2:24:59 PM Number of Addenda: 0 Note Initiated On: 12/15/2019 1:41 PM Farhad Anthony MD ENDOSCOPY PROCEDURES Final R esult from Last 3 Months or Most Recently Relevant to Health Maintenance Insurance MEDICARE [employer] SENIOR SUPPLEMENT MEDICARE [facility] MEDICARE [facility] Advance Directives For more information, please contact: [phone] * Full Code (Latest Code Status on File) Date Activated Date Inactivated Comments 12/15/2019 12:20 PM 12/15/2019 7:01 PM Care Teams Hydraulic Auto Jack Mechanic Relationship Specialty Start Date End Date Goran Sharma MD PCP - General 05/26/17 Gurjit Hunt MD [address] [address] Referring Physician Obstetrics and Gynecology 08/26/23
--- OUTSIDE RECORDS SUMMARY | 2024-12-22 14:00 | XMS_ITS | Clinical Summary ---
Author Organization [facility] Address [address] [place] [address] Care Team Providers Care Director Of Human Resources Name Role Phone Goran Sharma MD Primary Care Provider [phone] Source Comments [facility],non-owned Affiliates and Associated Physician Practices is amultiple site organization consisting of ambulatory clinics and hospital sitesin [place], [place], [place] and [place]. This disclosure is being madepursuant to the Care Everywhere program and may not contain all information available regarding this patient. Last updated 18.[facility] Allergies Active Allergy Reactions Criticality Noted Date Comments Atorvastatin Myalgias 06/12/2022 Lisinopril Cough 06/12/2022 Pitavastatin GI Discomfort 06/12/2022 Simvastatin GI Discomfort 06/12/2022 Sulfa Antibiotics Unknown 10/14/2024 A CHILD Sulfa Drugs Other 06/21/2019 As a child Tetracycline Rash Medium 06/21/2019 Medications * Be aware that medications may not be up to date on this document. Alwaysverify current medications with the patient. irbesartan (AVAPRO) 150 MG tablet Take 150 mg by mouth once daily Active azithromycin (ZITHROMAX) 250 MG tablet Take 2 tabs today, then 1 tab daily for next 4 days 6 tablet 06/21/2019 Active irbesartan-hydro CHLOROthiazide (Avalide) 150-12.5 MG tablet Take 1 (one) tablet by mouth once daily 07/30/2024 Active meloxicam (Mobic) 15 MG tablet Take 1 (one) tablet by mouth once daily 30 tablet 5 09/23/2024 Active diazePAM (Valium) 5 MG tablet TAKE 1 TABLET TWICE DAILY NEEDED FOR MUSCLE SPASM 09/01/2024 Active Hospital, Clinic, or Other Facility Administered Medication Ordered Dose Route Frequency Start Date End Date Status methylPREDNISolone acetate (DEPO-Medrol) injection 80 mgIndications:Primary osteoarthritis of left knee 80 mg IX ONCE 12/17/2024 12/18/19 25 Ended lidocaine PF (Xylocaine MPF) 1 % injection 3 mLIndications:Primary osteoarthritis of left knee 3 mL IX ONCE 12/17/2024 12/18/19 25 Ended Encounters Date Type Department Care Team Description 12/17/2024 9:30 AM CDT Office Visit [facility] Orthopedics [address] [place] [address], [address] [address] Adam Hernandez MD Primary osteoarthritis of left knee (Primary Dx) 10/14/2024 1:00 PM CDT Office Visit [facility] Orthopedics [id number] [place] [address], [address] [address] Adam Hernandez MD Left knee pain, unspecified chronicity (Primary Dx) 09/23/2024 4:10 PM CDT Office Visit [facility] Orthopedics [id number] [place] [address], [address] [address] Adam Hernandez MD Primary osteoarthritis of left knee (Primary Dx); Left knee pain, unspecified chronicity from Last 3 Months Social History Tobacco Use Types Packs/Day Years Used Date Smoking Tobacco: Never Smokeless Tobacco: Never Tobacco Cessation:Counseling Given: Not Answered Alcohol Use Standard Drinks/Week Comments Never 0 (1 standard drink = 0.6 oz pur e alcohol) AUDIT-C Answer Date Recorded Frequency of Alcohol Consumption Never 06/21/2019 Average Number of Drinks Not on file 020 Frequency of Binge Drinking Not on file 05/30 PHQ-2 Answer Date Recorded Patient Health Questionnaire-2 Score 4 12/10/2024 Comments No Sex and Gender Information Value Date Recorded Sex Assigned at Not on file Legal Sex Female 11:23 AM EARLY CHILDHOOD EDUCATION COORDINATOR Gender Identity Not on file Sexual Orientation Not on file Last Filed Vital Signs Vital Sign Reading Time Taken Comments Blood Pressure 144/82 06/21/2019 2:49 PM EARLY [employer]IL[employer]OOD EDUCATION COORDINATOR Pulse 80 06/21/2019 2:49 PM EARLY CHILDHOOD EDUCATION COORDINATOR Temperature 36.4 C (97.6 F) 06/21/2019 2:49 PM EARLY CHILDHOOD EDUCATION COORDINATOR Respiratory Rate 16 06/21/2019 2:49 PM EARLY CHILDHOOD EDUCATION COORDINATOR Oxygen Saturation 98% 06/21/2019 2:49 PM EARLY CHILDHOOD EDUCATION COORDINATOR Inhaled Oxygen Concentration - - Weight 83.9 kg (185 lb) 09/23/2024 4:17 PM CDT Height 160 cm (5' 3) 09/23/2024 4:17 PM CDT Body Mass Index 32.77 09/23/2024 4:17 PM CDT Plan of Treatment Health Maintenance Due Date Last Done Comments BONE DENSITY TESTING 1945 MEDICARE AWV 12 MONTHS 1945 HEPATITIS C SCREENING 03/07/1965 DTAP/TDAP/TD VACCINES (1 - Tdap) 1966 PNEUMOCOCCAL VACCINE 50+ (1 of 1 - PCV) 1997 ZOSTER VACCINE (1 of 2) 1997 Respiratory Syncytial Virus (RSV) Vaccine Pt: or over 60 yrs (1 - 1-dose 75+ series) 2022 COVID-19 VACCINE (3 - season) 2023 07/23/2020, 06/22/2020 INFLUENZA VACCINE (#1) 2024 , 01/14/2019, 12/24/2017, Additional history exists DEPRESSION SCREENING Completed 10/14/2024 HEPATITIS B VACCINE Aged Out No longe r eligible based on patient's age to complete this topic HIB VACCINE Aged Out No longer eligi ble based on patient's age to complete this topic HPV VACCINE Aged Out No longer eligi ble based on patient's age to complete this topic MENINGOCOCCAL (Group B) VACCINE SHARED DECISION-MAKING Aged Out No longer eligible based on patient's age to complete this topic MENINGOCOCCAL GROUPS A/C/Y/W VACCINE Aged Out No longer eligible based on patient's age to complete this topic Insurance MEDICARE MEDICARE [facility] Care Teams Director Of Human Resources Relationship Specialty Start Date End Date Goran Sharma MD [address] [place] [id number] PCP - General Family Medicine 06/21/19
== END 2024-12-22 13:53 | disposition home or self-care (01) ==
PROVIDERS: PCP Family Medicine
DX: Z78.0 Asymptomatic menopausal state (principal); M85.89 Other specified disorders of bone density and structure, multiple sites
CPT/HCPCS: 77080